=== PATIENT | female | born 1975 | race Caucasian/White ===

== ENCOUNTER 2016-08-30 17:28 | Emergency (ER) | payer BC ==
[2016-08-30 19:19] VITALS: BP 112/74
--- NOTE | 2016-08-30 20:16 | UC ---
Back Pain HPI - HPI Summary HPI Summary: LBP for 3 weeks. Has long history of back pain (more than 12 years). Using Motrin, Tens, belt, but pain is still quite severe. Used to see a chiropractor, no longer. No fever. NO urinary symptoms. No specific injury. Desk job. Hurts to twist, bend, get up out of a chair. 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 Negative: Swelling, Redness, Bruising, Fever, Weakness, Numbness, Abdominal Pain, Flank Pain, Bladder Incontinence, Bowel Incontinence, Weight Loss - Risk Factors AAA Risk Factors: Negative TAD Risk Factors: Negative Cauda Equina Risk Factors: Negative Epidural Abscess Risk Factors: Negative - Allergies/Home Medications Allergies/Adverse Reactions: Allergies Allergy/AdvReac Type Severity Reaction Status Date / Time Amoxicillin Allergy Intermediate Rash Verified 08/30/16 19:19 Home Medications: Home Medications Ibuprofen TAB* [Motrin TAB* 800 MG] 800 mg PO ONCE 08/30/16 [History Confirmed 08/30/16] PMH/Surg Hx/FS Hx/Imm Hx Previously Healthy: Yes - Surgical History Surgical History: Yes Surgery Procedure, Year, and Place: uterine ablation 2014. kidney stone. tubal - Family History Known Family History: Positive: Other - no FH autoimmune disorders - Social History Occupation: Employed Full-time Lives: With Family Alcohol Use: Weekly Alcohol Amount: few times a week Substance Use Type: None Smoking Status (MU): Light Every Day Tobacco Smoker Type: Cigarettes Amount Used/How Often: 1/2 ppd Household Exposure Type: Cigarettes Review of Systems Constitutional: Fatigue Skin: Negative Eyes: Negative ENT: Negative Respiratory: Negative Cardiovascular: Negative Gastrointestinal: Negative Genitourinary: Negative Motor: Negative Neurovascular: Negative Musculoskeletal: Arthralgia, Decreased ROM, Myalgia - low back Neurological: Negative Psychological: Negative All Other Systems Reviewed And Are Negative: Yes Physical Exam Triage Information Reviewed: Yes Appearance: Well-Appearing, Well-Nourished, Pain Distress - looks uncomfortable ; hard to get up from chair. Slow gait, Obese Vital Signs: Initial Vital Signs Temp 100 F 08/30/16 19:14 Pulse 72 08/30/16 19:14 Resp 18 08/30/16 19:14 BP 112/74 08/30/16 19:14 Pulse Ox 100 08/30/16 19:14 Vital Signs Reviewed: Yes Eye Exam: Normal Neck exam: Normal Neck: Positive: Supple Respiratory Exam: Normal Respiratory: Positive: Lungs clear, Normal breath sounds, No respiratory distress, No accessory muscle use Cardiovascular Exam: Normal Musculoskeletal Exam: Other - mild tenderness to palpation of lower lumbar and buttock musculature bilat. No midline pain. Antalgic gait. Neurological Exam: Normal Neurological: Positive: Alert, Muscle Tone Normal Psychological Exam: Normal Diagnostics - Laboratory Diagnostic Studies Completed/Ordered: U/A 2+ leuks; XRay lumbar neg Back Pain Course/Dx - Differential Dx/Diagnosis Provider Diagnoses: UTI; low back strain Discharge - Discharge Plan Condition: Stable Disposition: HOME Prescriptions: Cephalexin CAP* [Keflex CAP*] 500 mg PO TID #20 cap Cyclobenzaprine TAB* [Flexeril TAB*] 10 mg PO TID PRN #30 tab PRN Reason: muscle spasms HYDROcodone/ACETAMIN 5-325 MG* [[place] 5-325 TAB*] 1 - 2 tab PO Q6H PRN #20 tab MDD 6 tab PRN Reason: Pain Patient Education Materials: Urinary Tract Infection in Women (ED), Low Back Strain (ED) Referrals: Quintin Lugo MD [Primary Care Provider] - Rom Olivo MD [Medical Doctor] -
--- NOTE | 2016-08-30 21:20 | RAD ---
INDICATION: Back pain for 3 weeks COMPARISON: None TECHNIQUE: Routine PA, lateral, and oblique imaging was performed . FINDINGS: Bones: There are no acute bony findings. There is no significant osteoarthritic change. Alignment: Normal Disc spaces: The disc spaces are well-maintained Soft tissues: There are no soft tissue abnormalities. IMPRESSION: NO SIGNIFICANT OSTEOARTHRITIC CHANGE
[2016-08-30] MEDS ORDERED: HYDROcodone/ACETAMIN 5-325 MG* 1 TAB PO ONE (21:31)
[2016-08-30] MEDS ORDERED: Cyclobenzaprine TAB* 10 MG PO ONE (21:31)
[2016-08-30] MEDS ORDERED: Cephalexin CAP* 500 MG PO ONE (21:32)
== END 2016-08-30 21:46 | disposition home or self-care (01) ==
LOC: UCCORT 17:28
DX: S39.012A Strain of muscle, fascia and tendon of lower back, initial encounter (principal); X58.XXXA Exposure to other specified factors, initial encounter; Y93.9 Activity, unspecified; Y92.9 Unspecified place or not applicable; N39.0 Urinary tract infection, site not specified; Z88.0 Allergy status to penicillin; F17.210 Nicotine dependence, cigarettes, uncomplicated
CPT/HCPCS: 72110; 87086; 99212; A9270-GY; G0463

== ENCOUNTER 2017-06-23 12:00 | Emergency (ER) | payer BC ==
[2017-06-23 14:02] VITALS: BP 119/73
--- NOTE | 2017-06-23 14:52 | UC ---
Throat Pain/Nasal Neal HPI - HPI Summary HPI Summary: 42 year old female presents with complains of chest congestion and cough. - History of Current Complaint Chief Complaint: UCRespiratory Stated Complaint: UPPER RESPIRATORY COMPLAINT Time Seen by Provider: 06/23/17 14:52 Hx Obtained From: Patient Hx Last Menstrual Period: had ablation Onset/Duration: Sudden Onset Severity: Moderate Pain Scale Used: 0-10 Numeric - 5 - Allergies/Home Medications Allergies/Adverse Reactions: Allergies Allergy/AdvReac Type Severity Reaction Status Date / Time Amoxicillin Allergy Intermediate Rash Verified 06/23/17 13:56 Home Medications: Home Medications Ibuprofen [Advil] 400 mg PO BID PRN 06/23/17 [History Confirmed 06/23/17] PMH/Surg Hx/FS Hx/Imm Hx - Surgical History Surgical History: Yes Surgery Procedure, Year, and Place: uterine ablation 2014. kidney stone. tubal - Family History Known Family History: Positive: Other - no FH autoimmune disorders - Social History Alcohol Use: Weekly Alcohol Amount: few times a week Substance Use Type: None Smoking Status (MU): Light Every Day Tobacco Smoker Type: Cigarettes Amount Used/How Often: 4 cigarettes daily Household Exposure Type: Cigarettes - Immunization History Most Recent Influenza Vaccination: 04/2017 Review of Systems Constitutional: Negative Skin: Negative Eyes: Negative ENT: Sore Throat, Nasal Discharge, Sinus Congestion, Sinus Pain/Tenderness Respiratory: Cough Cardiovascular: Negative Gastrointestinal: Negative Genitourinary: Negative Motor: Negative Neurovascular: Negative Musculoskeletal: Negative Neurological: Negative Psychological: Negative All Other Systems Reviewed And Are Negative: Yes Physical Exam Triage Information Reviewed: Yes Vital Signs: Initial Vital Signs Temp 36.8 C 06/23/17 13:57 Pulse 85 06/23/17 13:57 Resp 18 06/23/17 13:57 BP 119/73 06/23/17 13:57 Pulse Ox 99 06/23/17 13:57 Vital Signs Reviewed: Yes Eye Exam: Normal ENT: Positive: Pharyngeal erythema, Nasal congestion, Sinus tenderness Dental Exam: Normal Neck exam: Normal Neck: Positive: 1 Respiratory: Positive: Wheezing Cardiovascular Exam: Normal Abdominal Exam: Normal Musculoskeletal Exam: Normal Neurological Exam: Normal Psychological Exam: Normal Skin Exam: Normal Throat Pain/Nasal Course/Dx - Differential Dx/Diagnosis Provider Diagnoses: cough. chest congestion Discharge - Discharge Plan Condition: Stable Disposition: HOME Prescriptions: Albuterol HFA INHALER* [Ventolin HFA Inhaler*] 1 puff INH Q6H PRN #1 mdi PRN Reason: Wheezing Azithromyxin FRANCHESKA (NF) [Z-Francheska (Zithromax) 250 mg tabs #6] 2 tab PO .TODAY, THEN 1 DAILY #6 tab Guaifenesin-Codeine [Cheratussin AC] 1 teasp PO Q8H PRN #120 ml MDD 15 ml PRN Reason: Cough Methylprednisolone [Medrol Dosepak 4 MG*] 4 mg PO .SEE FRANCHESKA INSTRUCTION #21 tab Patient Education Materials: Acute Cough (ED) Referrals: No Primary Care Phys,NOPCP [Primary Care Provider] -
== END 2017-06-23 15:11 | disposition home or self-care (01) ==
LOC: UCCORT 12:00
DX: R05 Cough (principal); R09.89 Other specified symptoms and signs involving the circulatory and respiratory systems; Z87.442 Personal history of urinary calculi; Z88.1 Allergy status to other antibiotic agents; F17.210 Nicotine dependence, cigarettes, uncomplicated
CPT/HCPCS: 99212; G0463